=== PATIENT | female | born 1950 | race Caucasian/White ===

== ENCOUNTER 2022-05-09 11:24 | Inpatient (IN) | payer OTHER, MEDICAID ==
[~2022-05-09] VITALS: Ht 167.6 cm; Wt 74.0 kg
[2022-05-09 11:25] VITALS: BP 136/69
--- NOTE | 2022-05-09 11:26 | NUR ---
Pt BIBA to bed 03.
--- NOTE | 2022-05-09 11:40 | NUR ---
PT BIBA FROM FACILITY FOR RECTAL BLEEDING NOTE DURING CLEANING BY STAFF. PT STATES CHRONIC BLEEDING X1 YEAR. DENIES ANY COMPLAINTS.
--- NOTE | 2022-05-09 11:41 | NUR ---
CALLED [facility] AND SPOKE WITH TRUMAN BEEBE. THE PACKET THAT THEY SENT OVER IS NOT LEGIBLE. SHE ALSO STATED THAT SHE CANNOT READ THE DIAGNOSIS ON THE FORMS AND IS NOT ABLE TO TELL ME BECAUSE THEY ARE AN ASSISTIVE LIVING FACILITY. SHE WAS ALSO UNABLE TO TELL ME ALLERGIES. DR NAVARRO MADE AWARE
--- NOTE | 2022-05-09 12:00 | NUR ---
UPON EXAMINATION, PT PRESENTS WITH BLEEDING MASS ON RECTUM OBSERVED BY AVEL AND MACY ROSE.
--- NOTE | 2022-05-09 12:39 | NUR ---
Female Assistant Project Manager accompanied female patient for External Rectal Exam.
[2022-05-09 13:42] LABS: BASOPHILS # (AUTO) 0.1 K/uL (0.00-0.22); BASOPHILS % (AUTO) 0.9 % (0.0-2.0); EOSINOPHILS # (AUTO) 0.1 K/uL (0-0.4); EOSINOPHILS % (AUTO) 1.1 % (0.0-4.0); HEMATOCRIT 41.2 % (36-48); HEMOGLOBIN 13.8 g/dL (12.0-16.0); LYMPHOCYTES % (AUTO) 22.5 % (20.5-51.1); MEAN CORPUSCULAR HEMOGLOBIN 31 pg (27-31); MEAN CORPUSCULAR HGB CONC 34 g/dL (33-37); MEAN CORPUSCULAR VOLUME 91.3 fL (80-94); MONOCYTES # (AUTO) 0.7 K/uL (0.8-1.0); MONOCYTES % (AUTO) 8.2 % (1.7-9.3); NEUTROPHILS # (AUTO) 5.9 K/uL (1.8-7.7); NEUTROPHILS % (AUTO) 67.3 % (42.2-75.2); PLATELET COUNT (AUTO) 303 K/uL (140-450); RED BLOOD CELL COUNT(AUTO) 4.51 MIL/uL (4.20-5.40); RED CELL DISTRIBUTION WIDTH 15.9 % (11.6-13.7); WHITE BLOOD COUNT (AUTO) 8.7 K/uL (4.8-10.8)
[2022-05-09] MEDS ORDERED: diphenhydrAMINE 50 MG/ML VIAL IVP ONE ×2 (14:10→14:30)
--- NOTE | 2022-05-09 14:28 | NUR ---
PT ACTIVELY TRYING TO GET OUT OF BED, STATING SHE NEEDS TO GO BACK HOME SHE HAS RESPONSIBILITIES TO TAKE CARE OF. INSISTED THAT SHE NEEDS TO STAY AND IN BED SHE IS NOT STABLE ON HER FEET. ASSISTED HER BACK TO BED AND REINSURED THAT SHE WILL RECEIVE TREATMENT FOR HER CONDITION. AVEL MADE AWARE.
[2022-05-09 14:44] LABS: ALBUMIN 3.6 g/dL (3.4-5.0); ANION GAP 13.8 (8-16); CARBON DIOXIDE 26.7 mmol/L (21-32); CREATININE 0.7 mg/dL (0.6-1.3); POTASSIUM 3.5 mmol/L (3.5-5.1); TOTAL BILIRUBIN 0.3 mg/dL (0.0-1.0)
--- NOTE | 2022-05-09 15:50 | NUR ---
PT CONTINUES TO GET RESTLESS AND ATTEMPTS TO LEAVE WITH UNSTEADY GAIT. REINSURED PATIENT BACK INTO BED. ERMD NOTIFIED. WILL CARRY OUT ORDER
[2022-05-09] MEDS ORDERED: DIAZEPAM PFS 10 MG/2 ML SYR IVP ONE (15:55)
--- NOTE | 2022-05-09 16:34 | NUR ---
PT CALM AND RESTING IN BED
--- NOTE | 2022-05-09 16:44 | NUR ---
PROVIDED PATIENT WITH PUDDING AND ORANGE JUICE
[2022-05-09] MEDS ORDERED: POTASSIUM CHLORIDE 10 MEQ TABER PO PRN (17:10)
[2022-05-09] MEDS ORDERED: DOCUSATE SODIUM 100 MG GELCAP PO PRN (17:10)
[2022-05-09] MEDS ORDERED: ONDANSETRON 4 MG/2 ML VIAL IM/IVP PRN (17:10)
[2022-05-09] MEDS ORDERED: NACL 0.9% 1,000 ML IV SCH (17:10)
[2022-05-09] MEDS ORDERED: ZOLPIDEM 5 MG TAB PO PRN (17:10)
[2022-05-09] MEDS ORDERED: guaiFENesin DM 200/20 MG-10 ML 10 ML UDC PO PRN (17:10)
[2022-05-09] MEDS ORDERED: HYDROcodone/APAP 7.5/325 MG 1 TAB PO PRN (17:10)
[2022-05-09] MEDS ORDERED: ACETAMINOPHEN 325 MG TAB PO PRN (17:10)
--- NOTE | 2022-05-09 17:30 | NUR ---
PATIENT ARRIVED FROM ER. ABLE TO AMBULATE TO [facility] BED WITH STEADY GAIT. EXPLAINED SITUATION TO PATIENT, WITH DIAGNOSIS AND PLAN OF CARE WITH PATIENT. DOES NOT WANT TO STAY AND WANTS TO GO BACK HOME TO [facility]. PATIENT THOUGHT SHE WAS COMING HERE TO GET CHECKED ON RECTAL BLEEDING AND TO GO BACK HOME AFTERWARDS, MORE LIKE AN OUTPATIENT VISIT TO CLINIC. DOES NOT WANT TO STAY IN HOSPITAL AND FEELS SHE DOES NOT NEED TO BE HERE. DR. KRISHNAMURTHY NOTIFIED AND VERBALIZED UNDERSTANDING. WILL PRINT AMA FORM AND HAVE PATIENT SIGN.
[2022-05-09 17:31] VITALS: BP 131/62
[2022-05-09] MEDS ORDERED: BENZ-315 PO (17:31)
[2022-05-09] MEDS ORDERED: ALBU0.0912 IH (17:31)
[2022-05-09] MEDS ORDERED: LEVO100C3 PO (17:31)
[2022-05-09] MEDS ORDERED: RISP0.5T3 PO (17:31)
[2022-05-09] MEDS ORDERED: LOVA40TA4 PO (17:31)
--- NOTE | 2022-05-09 17:35 | NUR ---
Patient will be admitted to care of DR KRISHNAMURTHY. Admited to MS. Will go to room 107A. Belongings list completed. Report to KARLOS ROCHA.
[2022-05-09 17:45] LABS: AMYLASE 33 U/L (25-115); FREE T4 (FREE THYROXINE) 1.21 ng/dL (0.76-1.46); HDL CHOLESTEROL 95 mg/dL (40-60); LDL (CALC) 82 mg/dL (60-100); LIPASE 88 U/L (73-393); MAGNESIUM 2.2 mg/dL (1.8-2.4); PHOSPHORUS 2.9 mg/dL (2.5-4.9); THYROID STIMULATING HORMONE 2.53 uIU/mL (0.34-3.74); TRIGLYCERIDES 61 mg/dL (30-150)
--- NOTE | 2022-05-09 18:00 | NUR ---
PATIENT SIGNED AMA FORM. IV SITE REMOVED WITH MINIMAL BLOOD AND LUMEN COMPLETELY INTACT. PATIENT TO GATHER BELONGINGS AND THEN LEAVE AMA VIA AMBULATION.
--- NOTE | 2022-05-09 18:13 | NUR ---
PATIENT LEFT AMA AT THIS TIME. LIVES IN [facility]. WILL AMBULATE THERE PER PATIENT. ABLE TO AMBULATE WITH STEADY GAIT.
[2022-05-10 06:08] LABS: T4 (THYROXINE) 10.3 ug/dL (4.5-12.0)
[2022-05-10] MEDS ORDERED: PANTOPRAZOLE 40 MG TABEC PO SCH (09:00)
== END 2022-05-09 18:15 | disposition left against medical advice (07) | DRG 395 ==
LOC: MED 11:24 → MMU 16:52 → MTU 17:27
PROVIDERS: ADMIT Family Medicine; ATTEND Family Medicine
DX: K62.3 Rectal prolapse (principal); Z20.822 Contact with and (suspected) exposure to COVID-19; Z53.21 Procedure and treatment not carried out due to patient leaving prior to being seen by health care provider; Z79.899 Other long term (current) drug therapy; Z88.8 Allergy status to other drugs, medicaments and biological substances
CPT/HCPCS: 36415; 71045; 80053; 82150; 83036; 83690; 83735; 83880; 84100; 84436; 84439; 84443; 84479; 84484; 85025; 85610; 85730; 93005; 96374; 96375; 99285; J1200; J3360; Q0092; Q9967

== ENCOUNTER 2023-06-14 03:40 | Emergency (ER) | payer OTHER, MEDICAID ==
[~2023-06-14] VITALS: Ht 167.6 cm; Wt 61.7 kg
[~2023-06-14 03:40] MED LIST: ALBU0.0912 IH; BENZ-315 PO; LEVO100C3 PO; LOVA40TA4 PO; RISP0.5T3 PO
[2023-06-14 03:47] VITALS: BP 125/85; PULSE 95; RESP 16; TEMP 98.3; O2SAT 98
[2023-06-14 05:37] LABS: BASOPHILS % (AUTO) 0.4 % (0.0-2.0); EOSINOPHILS # (AUTO) 0.1 K/uL (0-0.4); EOSINOPHILS % (AUTO) 0.9 % (0.0-4.0); HEMATOCRIT 41.1 % (36-48); HEMOGLOBIN 13.9 g/dL (12.0-16.0); LYMPHOCYTES # (AUTO) 1.2 K/uL (2.5-16.5); LYMPHOCYTES % (AUTO) 10.8 % (20.5-51.1); MEAN CORPUSCULAR HEMOGLOBIN 32 pg (27-31); MEAN CORPUSCULAR HGB CONC 34 g/dL (33-37); MEAN CORPUSCULAR VOLUME 94.8 fL (80-94); MONOCYTES # (AUTO) 0.8 K/uL (0.8-1.0); MONOCYTES % (AUTO) 6.9 % (1.7-9.3); NEUTROPHILS # (AUTO) 9.1 K/uL (1.8-7.7); PLATELET COUNT (AUTO) 221 K/uL (140-450); RED BLOOD CELL COUNT(AUTO) 4.34 MIL/uL (4.20-5.40); RED CELL DISTRIBUTION WIDTH 16.6 % (11.6-13.7); WHITE BLOOD COUNT (AUTO) 11.2 K/uL (4.8-10.8)
[2023-06-14 05:54] LABS: ALANINE AMINOTRANSFERASE 46 U/L (12-78); ALBUMIN 3.9 g/dL (3.4-5.0); ALKALINE PHOSPHATASE 131 U/L (50-136); AMYLASE 74 U/L (25-115); ANION GAP 12.1 (8-16); ASPARTATE AMINOTRANSFERASE 67 U/L (15-37); CALCIUM 9.3 mg/dL (8.5-10.1); CARBON DIOXIDE 29.8 mmol/L (21-32); CHLORIDE 99 mmol/L (98-107); CREATININE 0.8 mg/dL (0.6-1.3); GLUCOSE 92 mg/dL (74-106); LIPASE 84 U/L (16-77); POTASSIUM 3.9 mmol/L (3.5-5.1); SODIUM SERUM 137 mmol/L (136-145); TOTAL BILIRUBIN 0.2 mg/dL (0.0-1.0); UREA NITROGEN, BLOOD 19 mg/dL (7-18)
[2023-06-14 05:59] LABS: APPEARANCE,URINE CLEAR (CLEAR); BILIRUBIN,URINE NEGATIVE (NEGATIVE); BLOOD, URINE NEGATIVE (NEGATIVE); COLOR,URINE YELLOW (YELLOW); LEUKOCYTE ESTERASE ,URINE NEGATIVE (NEGATIVE); NITRITE, URINE NEGATIVE (NEGATIVE); PH,URINE 6.5 (5.0-9.0); PROTEIN,URINE NEGATIVE (NEGATIVE); UGLUCOSE NEGATIVE (NEGATIVE); UROBILINOGEN,URINE 0.2 EU/dL (0.2 - 1)
[2023-06-14 10:15] VITALS: BP 139/77; PULSE 66; RESP 16; TEMP 98.3; O2SAT 100
== END 2023-06-14 10:17 | disposition home or self-care (01) ==
LOC: MED 03:40
DX: K62.5 Hemorrhage of anus and rectum (principal); R55 Syncope and collapse; K64.4 Residual hemorrhoidal skin tags; N83.202 Unspecified ovarian cyst, left side; N83.201 Unspecified ovarian cyst, right side; R94.31 Abnormal electrocardiogram [ECG] [EKG]; F31.9 Bipolar disorder, unspecified; E78.5 Hyperlipidemia, unspecified; E03.9 Hypothyroidism, unspecified; Z79.899 Other long term (current) drug therapy; Z88.8 Allergy status to other drugs, medicaments and biological substances; W18.39XA Other fall on same level, initial encounter; Y92.89 Other specified places as the place of occurrence of the external cause; Y93.89 Activity, other specified; Y99.8 Other external cause status
CPT/HCPCS: 36415; 74177; 80053; 81003; 82150; 83690; 85025; 99285; Q9967; 93005

== ENCOUNTER 2023-09-13 10:35 | Emergency (ER) | payer OTHER, MEDICAID ==
[~2023-09-13] VITALS: Ht 167.6 cm; Wt 72.6 kg
[2023-09-13 10:46] VITALS: BP 116/64; PULSE 76; RESP 20; TEMP 98; O2SAT 95
[2023-09-13] MEDS ORDERED: CEPH-588 PO (11:29)
[2023-09-13 11:37] VITALS: BP 116/64; PULSE 76; RESP 20; TEMP 98; O2SAT 95
== END 2023-09-13 11:37 | disposition home or self-care (01) ==
LOC: MED 10:35
DX: L03.031 Cellulitis of right toe (principal); Z79.899 Other long term (current) drug therapy
CPT/HCPCS: 99283

== ENCOUNTER 2023-11-08 19:11 | Inpatient (IN) | payer OTHER, MEDICAID ==
[~2023-11-08] VITALS: Ht 162.6 cm; Wt 70.3 kg
[~2023-11-08 19:11] MED LIST changes: +CEPH-588 PO
[2023-11-08 19:26] VITALS: BP 150/86; PULSE 86; RESP 16; TEMP 97.4; O2SAT 95
[2023-11-08] MEDS ORDERED: ALBU0.0912 INH (20:10)
[2023-11-08] MEDS ORDERED: RISP3TAB58 PO (20:10)
[2023-11-08] MEDS ORDERED: BENZ-315 PO (20:10)
[2023-11-08] MEDS ORDERED: LEVO100C3 PO (20:10)
[2023-11-08] MEDS ORDERED: CARB1TAB37 PO (20:10)
[2023-11-08 20:47] LABS: BASOPHILS # (AUTO) 0.1 K/uL (0.00-0.22); BASOPHILS % (AUTO) 0.6 % (0.0-2.0); EOSINOPHILS # (AUTO) 0.2 K/uL (0-0.4); EOSINOPHILS % (AUTO) 1.7 % (0.0-4.0); HEMATOCRIT 40.3 % (36-48); HEMOGLOBIN 13.9 g/dL (12.0-16.0); LYMPHOCYTES # (AUTO) 2.2 K/uL (2.5-16.5); LYMPHOCYTES % (AUTO) 23.6 % (20.5-51.1); MEAN CORPUSCULAR HEMOGLOBIN 31 pg (27-31); MEAN CORPUSCULAR HGB CONC 35 g/dL (33-37); MEAN CORPUSCULAR VOLUME 89.7 fL (80-94); MONOCYTES # (AUTO) 0.8 K/uL (0.8-1.0); MONOCYTES % (AUTO) 8.6 % (1.7-9.3); NEUTROPHILS % (AUTO) 65.5 % (42.2-75.2); PLATELET COUNT (AUTO) 278 K/uL (140-450); RED BLOOD CELL COUNT(AUTO) 4.49 MIL/uL (4.20-5.40); RED CELL DISTRIBUTION WIDTH 15.4 % (11.6-13.7); WHITE BLOOD COUNT (AUTO) 9.2 K/uL (4.8-10.8)
[2023-11-08 20:58] LABS: ANION GAP 13.1 (8-16); CALCIUM 9.7 mg/dL (8.5-10.1); CARBON DIOXIDE 26.6 mmol/L (21-32); CHLORIDE 103 mmol/L (98-107); CREATININE 0.7 mg/dL (0.6-1.3); GLUCOSE 98 mg/dL (74-106); POTASSIUM 3.7 mmol/L (3.5-5.1); SODIUM SERUM 139 mmol/L (136-145); UREA NITROGEN, BLOOD 15 mg/dL (7-18)
[2023-11-08 21:03] LABS: INR 0.96 (0.8-1.2); PROTHROMBIN TIME 10.1 secs (10.8-13.4)
[2023-11-08] MEDS ORDERED: MORPHINE SULFATE 4 MG/ML SYR IVP PRN (21:35)
[2023-11-08 23:00] VITALS: PULSE 72; RESP 17; O2SAT 96
[2023-11-09 04:00] VITALS: BP 148/88; O2SAT 94
[2023-11-09 07:17] LABS: BASOPHILS % (AUTO) 0.6 % (0.0-2.0); EOSINOPHILS # (AUTO) 0.2 K/uL (0-0.4); EOSINOPHILS % (AUTO) 2.1 % (0.0-4.0); HEMATOCRIT 39.6 % (36-48); HEMOGLOBIN 13.5 g/dL (12.0-16.0); LYMPHOCYTES # (AUTO) 1.8 K/uL (2.5-16.5); LYMPHOCYTES % (AUTO) 21.3 % (20.5-51.1); MEAN CORPUSCULAR HEMOGLOBIN 31 pg (27-31); MEAN CORPUSCULAR HGB CONC 34 g/dL (33-37); MEAN CORPUSCULAR VOLUME 90.7 fL (80-94); MONOCYTES # (AUTO) 0.9 K/uL (0.8-1.0); MONOCYTES % (AUTO) 10.1 % (1.7-9.3); NEUTROPHILS # (AUTO) 5.6 K/uL (1.8-7.7); NEUTROPHILS % (AUTO) 65.9 % (42.2-75.2); PLATELET COUNT (AUTO) 278 K/uL (140-450); RED BLOOD CELL COUNT(AUTO) 4.37 MIL/uL (4.20-5.40); RED CELL DISTRIBUTION WIDTH 14.9 % (11.6-13.7); WHITE BLOOD COUNT (AUTO) 8.4 K/uL (4.8-10.8)
[2023-11-09 07:25] LABS: ALANINE AMINOTRANSFERASE 19 U/L (12-78); ALBUMIN 3.3 g/dL (3.4-5.0); ALKALINE PHOSPHATASE 88 U/L (50-136); ANION GAP 12.9 (8-16); ASPARTATE AMINOTRANSFERASE 17 U/L (15-37); CALCIUM 9.3 mg/dL (8.5-10.1); CARBON DIOXIDE 25.6 mmol/L (21-32); CHLORIDE 104 mmol/L (98-107); CREATININE 0.7 mg/dL (0.6-1.3); GLUCOSE 105 mg/dL (74-106); POTASSIUM 3.5 mmol/L (3.5-5.1); SODIUM SERUM 139 mmol/L (136-145); TOTAL BILIRUBIN 0.3 mg/dL (0.0-1.0); TOTAL PROTEIN, SERUM 7.1 g/dL (6.4-8.2); UREA NITROGEN, BLOOD 11 mg/dL (7-18)
[2023-11-09] MEDS ORDERED: SUPREP BOWEL PREP KIT 354 ML SOLN.RECON PO ONE (09:00)
[2023-11-09] MEDS: HYDROcodone/APAP 5/325 MG 1 TAB TAB PO PRN (09:37)
[2023-11-09] MEDS ORDERED: hydrALAZINE 20 MG/ML VIAL IVP PRN (11:10)
[2023-11-09] MEDS: bisacodyL 5 MG TABEC PO SCH (12:36)
[2023-11-09] MEDS: CARBIDOPA/LEVODOPA 25/100 MG 1 TAB PO SCH (12:36)
[2023-11-09] MEDS: SUPREP BOWEL PREP KIT 354 ML SOLN.RECON PO SCH (14:53)
[2023-11-09 20:00] VITALS: BP 149/90; PULSE 75; RESP 18; TEMP 96.7; O2SAT 94
[2023-11-09] MEDS: BENZTROPINE 1 MG TAB PO SCH (21:01)
[2023-11-09] MEDS: SIMVASTATIN 10 MG TAB PO SCH (21:01)
[2023-11-09] MEDS: risperiDONE 1 MG TAB PO SCH (21:01)
[2023-11-10] MEDS: LEVOTHYROXINE 0.1 MG TAB PO SCH (06:57)
[2023-11-10] MEDS: fentaNYL citrate 0.05 MG/ML VIAL ONE (07:51)
[2023-11-10] MEDS: MIDAZOLAM 2 MG/2 ML VIAL ONE (07:52)
[2023-11-10] MEDS: MIDAZOLAM 2 MG/2 ML VIAL IVP ONE (08:10)
[2023-11-10] MEDS: fentaNYL citrate 0.05 MG/ML VIAL IVP ONE (08:11)
[2023-11-10 16:00] VITALS: BP 124/67; PULSE 71; RESP 18; TEMP 97.9; O2SAT 94
[2023-11-10 20:00] VITALS: BP 134/65; PULSE 65; RESP 16; TEMP 97.7; O2SAT 96
[2023-11-11] MEDS: LORazepam 2 MG/ML VIAL IM/IVP ONE (05:20)
[2023-11-11 08:00] VITALS: BP 108/71; PULSE 84; RESP 18; TEMP 98.5; O2SAT 100
[2023-11-11 12:00] VITALS: BP 106/73; PULSE 81; RESP 18; TEMP 98.4; O2SAT 98
[2023-11-11 16:00] VITALS: BP 123/78; PULSE 73; RESP 18; TEMP 97.5; O2SAT 98
[2023-11-11 20:00] VITALS: BP 135/81; PULSE 73; RESP 18; TEMP 97.6; O2SAT 100
[2023-11-12] VITALS: BP 118/86; PULSE 75; RESP 18; TEMP 97.8; O2SAT 98
[2023-11-12] MEDS: ACETAMINOPHEN 325 MG TAB PO PRN (03:22)
[2023-11-12 04:00] VITALS: BP 125/78; PULSE 81; RESP 18; TEMP 97.6; O2SAT 100
[2023-11-12 08:00] VITALS: BP 139/71; PULSE 75; RESP 18; TEMP 97.9; O2SAT 97
[2023-11-12] MEDS ORDERED: MORPHINE SULFATE 2 MG/ML SYR IVP PRN (08:05)
[2023-11-12 12:00] VITALS: BP 142/78; PULSE 78; RESP 18; TEMP 98; O2SAT 98
[2023-11-12 16:00] VITALS: BP 139/79; PULSE 75; RESP 18; TEMP 97.6; O2SAT 99
[2023-11-12 20:00] VITALS: BP 133/88; PULSE 80; RESP 18; TEMP 97.4; O2SAT 99
[2023-11-13 06:11] LABS: BASOPHILS # (AUTO) 0.1 K/uL (0.00-0.22); BASOPHILS % (AUTO) 0.9 % (0.0-2.0); EOSINOPHILS # (AUTO) 0.2 K/uL (0-0.4); EOSINOPHILS % (AUTO) 2.7 % (0.0-4.0); HEMATOCRIT 39.1 % (36-48); HEMOGLOBIN 13.2 g/dL (12.0-16.0); LYMPHOCYTES # (AUTO) 1.8 K/uL (2.5-16.5); LYMPHOCYTES % (AUTO) 23.6 % (20.5-51.1); MEAN CORPUSCULAR HEMOGLOBIN 31 pg (27-31); MEAN CORPUSCULAR HGB CONC 34 g/dL (33-37); MEAN CORPUSCULAR VOLUME 90.7 fL (80-94); MONOCYTES # (AUTO) 0.8 K/uL (0.8-1.0); MONOCYTES % (AUTO) 10.4 % (1.7-9.3); NEUTROPHILS # (AUTO) 4.8 K/uL (1.8-7.7); NEUTROPHILS % (AUTO) 62.4 % (42.2-75.2); PLATELET COUNT (AUTO) 258 K/uL (140-450); RED BLOOD CELL COUNT(AUTO) 4.31 MIL/uL (4.20-5.40); RED CELL DISTRIBUTION WIDTH 15.5 % (11.6-13.7); WHITE BLOOD COUNT (AUTO) 7.7 K/uL (4.8-10.8)
[2023-11-13 06:34] LABS: ALANINE AMINOTRANSFERASE 18 U/L (12-78); ALBUMIN 3.2 g/dL (3.4-5.0); ALKALINE PHOSPHATASE 90 U/L (50-136); ANION GAP 12.3 (8-16); ASPARTATE AMINOTRANSFERASE 17 U/L (15-37); CALCIUM 9.3 mg/dL (8.5-10.1); CARBON DIOXIDE 27.9 mmol/L (21-32); CHLORIDE 105 mmol/L (98-107); CREATININE 0.7 mg/dL (0.6-1.3); GLUCOSE 103 mg/dL (74-106); POTASSIUM 4.2 mmol/L (3.5-5.1); SODIUM SERUM 141 mmol/L (136-145); TOTAL BILIRUBIN 0.2 mg/dL (0.0-1.0); TOTAL PROTEIN, SERUM 6.9 g/dL (6.4-8.2); UREA NITROGEN, BLOOD 15 mg/dL (7-18)
[2023-11-13 08:00] VITALS: BP 150/105; PULSE 68; RESP 18; TEMP 96.4; O2SAT 98
[2023-11-13 09:20] VITALS: PULSE 68; RESP 18; O2SAT 90
[2023-11-13 13:29] VITALS: BP 150/105; PULSE 68; RESP 18; TEMP 96.9
== END 2023-11-13 14:20 | DRG 375 ==
LOC: MED 19:11 → MMU 21:38 → MTU 23:15
PROVIDERS: ADMIT Family Medicine; ATTEND Family Medicine
PROC: 0DBN8ZZ Excision of Sigmoid Colon, Via Natural or Artificial Opening Endoscopic (ICD-10-PCS; 2023-11-10)
PROC: 0DBL8ZX Excision of Transverse Colon, Via Natural or Artificial Opening Endoscopic, Diagnostic (ICD-10-PCS; 2023-11-10)
PROC: 0DBM8ZZ Excision of Descending Colon, Via Natural or Artificial Opening Endoscopic (ICD-10-PCS; principal; 2023-11-10 10:30)
DX: C18.9 Malignant neoplasm of colon, unspecified (principal); E44.0 Moderate protein-calorie malnutrition; J45.909 Unspecified asthma, uncomplicated; I10 Essential (primary) hypertension; K44.9 Diaphragmatic hernia without obstruction or gangrene; K80.20 Calculus of gallbladder without cholecystitis without obstruction; G20.C Parkinsonism, unspecified; N83.202 Unspecified ovarian cyst, left side; N83.201 Unspecified ovarian cyst, right side; E78.5 Hyperlipidemia, unspecified; K63.5 Polyp of colon; E03.9 Hypothyroidism, unspecified; Z88.8 Allergy status to other drugs, medicaments and biological substances; Z79.899 Other long term (current) drug therapy; Z68.26 Body mass index [BMI] 26.0-26.9, adult; K62.3 Rectal prolapse; K57.30 Diverticulosis of large intestine without perforation or abscess without bleeding
CPT/HCPCS: 36415; 71260; 80048; 80053; 82378; 85025; 85610; 87081; 88305; 99285; J2250; J3010; Q9967